=== PATIENT | female | born 1975 | race Caucasian/White ===

== ENCOUNTER 2017-09-19 13:52 | Emergency (ER) | payer OTHER ==
[~2017-09-19] VITALS: Ht 172.7 cm; Wt 99.8 kg
[~2017-09-19 13:52] MED LIST: ALBU90OI INH; AMOX250; ANTIDEPRESSANT; ARIP15 PO; Amox Tr-K Clv1 EAC2 PO; Amoxicillin500 MG PO; CIPR500 PO; CIPRO500 MG PO; CLON.1 PO; CYCL10 PO; Cipro250 MG PO; DIAZ2 PO; DIPATR PO; DOCU100 PO; DOXY100 PO; FAMO40 PO; HYDHCL25 PO; HYDHOMSY PO; HYDPAM25 PO; HYDR1TAB94 PO; Hydrocodone-Ap1 EA23 PO; IBUP400 PO; IBUP800 PO; Kristalose20 GM PO; Loperamide2 MG PO; MELO7.5 PO; METPRE4DP PO; Mucinex600 MG PO; Naprosyn500 MG PO; ONDA8 PO; OXYACE5T PO; OXYC10TA19 PO; OXYC1TAB11 PO; PHENO30 PO; PHENY100ER PO; PRED10 PO; PRED20 PO; PROC10 PO; PROM25 PO; Percocet 5-3251 EACH PO; Phenergan25 M1 PO; Pyridium200 MG PO; QUET300 PO; Roxicodone5 MG PO; SULTRIDS PO; TRAM50 PO; Ultram50 MG PO; Veetids 500500 MG PO; Vistaril50 MG PO; Zofran4 MG PO
== END 2017-09-19 16:10 | disposition home or self-care (01) ==
LOC: ER 13:52
DX: M20.12 Hallux valgus (acquired), left foot (principal); M20.11 Hallux valgus (acquired), right foot; F17.210 Nicotine dependence, cigarettes, uncomplicated; Z88.5 Allergy status to narcotic agent; Z88.8 Allergy status to other drugs, medicaments and biological substances; Z86.19 Personal history of other infectious and parasitic diseases
CPT/HCPCS: 73620; 99283

== ENCOUNTER 2018-01-14 14:32 | Emergency (ER) | payer OTHER ==
[~2018-01-14] VITALS: Ht 172.7 cm; Wt 99.8 kg
== END 2018-01-14 15:51 | disposition home or self-care (01) ==
LOC: ER 14:32
DX: S90.122A Contusion of left lesser toe(s) without damage to nail, initial encounter (principal); F17.210 Nicotine dependence, cigarettes, uncomplicated; Z88.5 Allergy status to narcotic agent; Z88.8 Allergy status to other drugs, medicaments and biological substances; W22.8XXA Striking against or struck by other objects, initial encounter
CPT/HCPCS: 73630; 99283

== ENCOUNTER 2018-01-28 09:44 | Emergency (ER) | payer OTHER ==
[~2018-01-28] VITALS: Ht 172.7 cm; Wt 99.8 kg
[2018-01-28] MEDS ORDERED: Pyridium200 MG PO (09:59)
[2018-01-28] MEDS ORDERED: CEPH500 PO (09:59)
[2018-01-28] MEDS ORDERED: METH40 PO (10:00)
[2018-01-28] MEDS ORDERED: Macrobid 100 M100 MG PO (10:09)
[2018-01-28] MEDS ORDERED: Zofran Odt4 MG SL (10:09)
== END 2018-01-28 10:15 | disposition home or self-care (01) ==
LOC: ER 09:44
DX: R11.2 Nausea with vomiting, unspecified (principal); R14.0 Abdominal distension (gaseous); T39.8X5A Adverse effect of other nonopioid analgesics and antipyretics, not elsewhere classified, initial encounter; T36.1X5A Adverse effect of cephalosporins and other beta-lactam antibiotics, initial encounter; F32.9 Major depressive disorder, single episode, unspecified; F41.9 Anxiety disorder, unspecified; F17.210 Nicotine dependence, cigarettes, uncomplicated; Z88.5 Allergy status to narcotic agent; Z88.8 Allergy status to other drugs, medicaments and biological substances; Z79.899 Other long term (current) drug therapy
CPT/HCPCS: 99282